=== PATIENT | male | born 2000 | race Caucasian/White ===

== ENCOUNTER 2024-10-29 10:13 | Emergency (ER) | payer BC, SELFPAY ==
[2024-10-29 10:26] VITALS: BP 172/108; PULSE 88; RESP 16; TEMP 36.9; O2SAT 98; BMI 29.1
--- NOTE | 2024-10-29 10:42 | ED_ITS ---
<Statement entered by Sesar Luther MD - 10/29/24 16:25> I consulted the JACKY, and we discussed the complexity of the problems being addressed. I approved the treatment and management plan for this patient's care in the emergency department, thus performing a substantial portion of the medical decision making. Randell Luther MD Discharge Plan Disposition Patient Disposition: Home, Self-Care Condition: Good Prescriptions Prescriptions: New methocarbamol 750 mg tablet 750 mg PO HS Qty: 30 0RF Referrals Follow up/Referrals: Quinn Helm DO [Staff Physician, Orthopedics] - See instructions Marisol Dunne APRN [Primary Care Provider, Medical] - See instructions Activity Restrictions/Add. Instructions Additional Instructions/Restrictions: Please return to the emergency department with any worsening signs or symptoms. Please utilize Tylenol ibuprofen and other anti-inflammatory medication as needed for symptomatic relief. Please utilize muscle relaxer as needed for symptomatic relief. Would recommend follow-up with PCP for physical therapy referral/orthopedic doctor for physical therapy referral and possible MRI of your hip. Clinical Impressions Clinical Impression: Sprain and strain of hip Instructions Patient Instructions: DI for Hip Bursitis, DI for Hip Pain Print Language Print Language: Ivorian Discharge ED Provider: Sesar Luther General Adult HPI General Chief complaint: Extremity Injury, Lower Stated complaint: right hip pain Time Seen by Provider: 10/29/24 10:24 Mode of Arrival: Ambulatory Source of Information: Patient Description of Symptoms (Recalled from ER Triage Doc. by RN): Patient reports right hip pain that started approx 1 year ago. States the pain comes and goes, however recently it has been making his leg go numb. History of Present Illness HPI narrative: 24-year-old male presents the emergency department with right hip pain, with some radicular symptomatology that is waxing waning for the last year, worsened over the weekend, patient denies any trauma or injury per history, does endorse remote broken leg , on the left, which he states I think made my right worse , several years ago, patient [place] any fever chills chest pain shortness of breath nausea vomiting constipation diarrhea no abdominal pain, no saddle anesthesia, no urinary bladder or bowel dysfunction, numbness and tingling waxes and wanes, no true upper or lower extremity weakness, no difficulty ambulating, patient has no other real relevant past medical history takes no other medications daily at home, is a current everyday smoker (vapes), denies any alcohol or drug use. Initial triage vitals are grossly unremarkable Please note that above description of symptoms, in this electronic medical record under categorization of recalled from ER triage doctor by RN are reflective of an initial nursing assessment, however, is not reflective of my full history and physical exam that was personally taken and clarified. Consequentially, this preceding description of symptoms, which may include the p atient's categorized chief complaint in the EMR, do not reflect my personal clinical impression, and the ultimate description of history of present illness and patient stated complaints should be deferred to this section of the note. Unless stated otherwise or congruent with this section of the note, additional signs, symptoms, or incongruence should be interpreted as inaccurate with my clinical impression. Onset (ago): year(s) Related Data Previous Rx's ?Medication ?Instructions ?Recorded methocarbamol 750 mg tablet 750 mg PO HS #30 tabs 10/08 04/30 Allergies Allergy/AdvReac Type Severity Reaction Status Date / Time No Known Allergies Allergy Verified 10/29/24 10:30 [facility] Disclaimer: The information contained in this section may have been updated after the patient was seen, as this information can be updated by other users. Social History Smoking Status: Current every day smoker alcohol intake: never current occupational status: other Travel in the last 8 weeks?: None ROS Obtained: Yes All systems reviewed & no additional complaints except as documented Physical Exam General General appearance: alert and in no apparent distress Head Head exam: atraumatic and normocephalic Eye Eye exam: Present PERRL and EOMI ENT ENT exam: Present mucous membranes moist Neck Neck exam: Present normal inspection Chest Chest inspection: Present normal inspection and symmetric chest wall rise Respiratory Respiratory exam: Present normal lung sounds bilaterally; Absent respiratory distress Cardiovascular Cardiovascular exam: Present regular rate and normal rhythm Abdominal Exam Abdominal exam: Present soft; Absent tenderness, guarding, rebound or rigidity Extremities Exam Extremities exam: Present normal inspection, tenderness and other (Mild pain palpation to the right intertrochanteric region, with some mild intrinsic hip dysfunction, difficulty with internal and external rotation, otherwise neurovascular intact) Back Exam Back exam: Present straight leg raise (R); Absent paraspinal tenderness, vertebral tenderness or straight leg raise (L) Neurological Exam Neurological exam: Present alert, oriented X3 and other (5 out of 5 strength in the bilateral lower extremities, no gross sensation deficit) Psychiatric Psychiatric exam: Present normal affect Skin Skin exam: Present warm and dry Medical Decision Making Medical Records Medical records reviewed: Yes I reviewed the patient's medical records. Screening: Per USPSTF and CDC recommendations, given the prevalence of disease in our region, it is our hospital?s policy to screen for HIV and viral Hepatitis for all patients aged 18 and over and those with ongoing risk factors. Ehsan Inquiry Pt receiving controlled substance: No Ehsan was queried for this patient: No Vital Signs: 10/29/24 10:26 10/29/24 11:08 Temperature 98.5 F Temperature Source Oral Pulse Rate 57 L Pulse Rate [Radial] 88 Respiratory Rate 16 Blood Pressure 196/115 H Blood Pressure [Right Arm] 172/108 H Blood Pressure Mean 142 Blood Pressure Mean [Right Arm] 129 Blood Pressure Source [Right Arm] Automatic Cuff Blood Pressure Position [Right Arm] Sitting 02 Sat by Pulse Oximetry 98 100 Oxygen Delivery Method Room Air Orders (Tests/Meds): ED MEDICATIONS Discontinued Medications Generic Name Dose Route Start Last Admin Trade Name Jacoboq PRN Reason Stop Dose Admin Ketorolac Tromethamine 15 mg 10/29/24 10:47 10/29/24 11:05 Ketorolac 15mg/Ml Vial IM 10/29/24 10:48 15 mg ONCE ONE Administration ORDERS Category Date Time Status XR hip RT 2-3V w/pelvis Stat Exams 10/29/24 10:47 Completed Medical Decision Narrative: 24-year-old male presents to the emergency department with right hip pain for 1 year, worsened over the weekend, with some radicular component, differential diagnose include but not limited to intra trochanteric bursitis, IT band syndrome, lumbar radiculopathy, hip fracture, osteoarthritis of the hip among others. I discussed this patient's case with the attending physician Dr. Luther Will obtain x-ray of the right hip and pelvis, will also give 15 mg IM Toradol for pain. I reviewed the patient's hip x-ray/pelvic x-ray along with corresponding radiologic reports, no acute osseous abnormality the right hip. I discussed the results with the patient at the bedside, patient did have some relief with Toradol administration, I do think the patient has some degree of intrinsic hip dysfunction, versus stable lumbar radiculopathy, patiently to follow-up with PCP and with provider in the upcoming days/weeks, recommend MRI/physical therapy, patient is otherwise neurovascular intact, no red flag signs or symptoms, patient was given strict ED return precautions. Patient voiced understanding and agreement with current treatment plan/discharge plan. I will prescribe methocarbamol 750 mg p.o. as needed for symptomatic relief. Critical Care Critical Care Time Critical Care Time: No
--- NOTE | 2024-10-29 10:47 | XR_ITS ---
FINAL REPORT CLINICAL HISTORY: Right hip pain x 1 yr FINDINGS: AP and frog leg views of the right hip were obtained. There is no acute fracture or dislocation. Joint space is preserved. Soft tissues are unremarkable. IMPRESSION: No acute osseous abnormality of the right hip. Reviewed, Interpreted and Dictated by Allie Watters MD Transcribed by Mona Paulson Authenticated and [facility]
--- NOTE | 2024-10-29 11:02 | PC.NURSE ---
PT RETURNED FROM XR
[2024-10-29] MEDS: KETOROLAC 15MG/ML VIAL 15 MG IM (11:05)
[2024-10-29 11:08] VITALS: BP 196/115; PULSE 57; O2SAT 100
[2024-10-29 11:58] VITALS: BP 129/79; PULSE 84; RESP 16; TEMP 36.7; O2SAT 99
== END 2024-10-29 12:00 | disposition home or self-care (01) ==
PROVIDERS: Emergency Provider Student in an Organized Health Care Education/Training Program; PCP Nurse Practitioner Family
DX: S73.101A Unspecified sprain of right hip, initial encounter (principal); S76.011A Strain of muscle, fascia and tendon of right hip, initial encounter; X58.XXXA Exposure to other specified factors, initial encounter
CPT/HCPCS: 73502; 96372; 99283; 99284; J1885